=== PATIENT | female | born 1985 | race Caucasian/White ===

== ENCOUNTER 2017-05-27 18:45 | Emergency (ER) | payer OTHER ==
[2017-05-27 18:52] VITALS: BP 126/82; PULSE 82; RESP 18; TEMP 98.6; O2SAT 97
--- NOTE | 2017-05-27 19:33 | EDPHY ---
H & P Stated Complaint: needle stick at work, [facility] cells and BME Time Seen by Provider: 05/27/17 19:24 HPI/ROS: CHIEF COMPLAINT: Needlestick injury HISTORY OF PRESENT ILLNESS: The patient presents to the ED for evaluation of a needlestick injury. 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 There was no blood products exposure. The patient presents to the emergency department with an ingredient list of the region she was working with. Aside from some local irritation she has no acute complaints. REVIEW OF SYSTEMS: A comprehensive 10 point review of systems is otherwise negative aside from elements mentioned in the history of present illness. Source: Patient Exam Limitations: No limitations - Personal History Current Tetanus/Diphtheria Vaccine: Unsure Current Tetanus Diphtheria and Acellular Pertussis (TDAP): Unsure - Medical/Surgical History Hx Asthma: No Hx Chronic Respiratory Disease: No Hx Diabetes: No Hx Cardiac Disease: No Hx Renal Disease: No Hx Cirrhosis: No Hx Alcoholism: No Hx HIV/AIDS: No Hx Splenectomy or Spleen Trauma: No Other PMH: ITP - Social History Smoking Status: Never smoked - Physical Exam Exam: General Appearance: Alert, no distress Eyes: Pupils equal and round no pallor or injection ENT, Mouth: Mucous membranes moist Respiratory: There are no retractions, lungs are clear to auscultation Cardiovascular: Regular rate and rhythm Gastrointestinal: Abdomen is soft and nontender, no masses, bowel sounds normal Neurological: A&O, normal motor function, normal sensory exam, normal cranial nerves Skin: Superficial puncture wound noted to tip of finger, no surrounding erythema Musculoskeletal: Neck is supple nontender Extremities: symmetrical, full range of motion Constitutional: Initial Vital Signs Temperature (C) 37 C 05/27/17 18:49 Heart Rate 82 05/27/17 18:49 Respiratory Rate 18 05/27/17 18:49 Blood Pressure 126/82 H 05/27/17 18:49 O2 Sat (%) 97 05/27/17 18:49 O2 Delivery Mode Room Air Allergies/Adverse Reactions: No Known Allergies Allergy (Unverified 05/27/17 18:49) Home Medications: Medication Instructions Recorded Progesterone 05/27/17 Medical Decision Making ED Course/Re-evaluation: I consulted with [facility] and reviewed the ingredient list of the reagent the patient was exposed to. At this point time they recommend only supportive care. There is no intravenous injection of this medication. The patient's tetanus is up-to-date. She is advised to return to the ED for any increasing pain, redness, fever or signs of infection. Departure - Departure Disposition: Home, Routine, Self-Care Clinical Impression: Puncture wound of finger Qualifiers: Encounter type: initial encounter Qualified Code(s): S61.239A - Puncture wound without foreign body of unspecified finger without damage to nail, initial encounter Condition: Good Instructions: Puncture Wound (ED) Additional Instructions: 1. [facility] states there is no toxicity from your exposure today 2. Please return to the ED for any signs of infection such as fever, increasing pain, redness or swelling. Referrals: TORIN CORDOVA [Primary Care Provider] - As per Instructions
[2017-05-27] MEDS ORDERED: TDAP ADULT 0.5 ML INJ (BOOSTRIX) IM ONE (20:02)
== END 2017-05-27 20:13 | disposition home or self-care (01) ==
DX: S61.239A Puncture wound without foreign body of unspecified finger without damage to nail, initial encounter (principal); W46.0XXA Contact with hypodermic needle, initial encounter; Y92.69 Other specified industrial and construction area as the place of occurrence of the external cause; Y99.0 Civilian activity done for income or pay; Y93.89 Activity, other specified; Z23 Encounter for immunization